=== PATIENT | male | born 1990 | race Caucasian/White ===

== ENCOUNTER 2022-09-25 13:12 | Emergency (ER) | payer OTHER ==
[~2022-09-25] VITALS: Ht 167.6 cm; Wt 77.1 kg
== END 2022-09-25 18:00 | disposition home or self-care (01) ==
LOC: ED 13:12
DX: H59.312 Postprocedural hemorrhage of left eye and adnexa following an ophthalmic procedure (principal)
CPT/HCPCS: 99283; A9270